=== PATIENT | male | born 1960 | race Caucasian/White ===

== ENCOUNTER → 2022-03-03 | Outpatient (CLI) | payer OTHER ==
[2022-03-03 14:46] LABS: INR 0.9 (<1.2); Prothrombin Time 9.7 sec (9.0-12.0)
[2022-03-03 18:28] LABS: HCT 38.1 % (39.6-50.0); HGB 12.1 g/dL (13.0-17.0); MCH 28.7 pg (27.0-32.0); MCHC 31.8 g/dL (32.0-37.0); MCV 90.3 fL (80.0-97.0); Mean Platelet Volume 10.2 fL (9.5-12.2); NRBC Per 100 WBC 0 /100 WBCS (0.0-0.0); Platelet Count 329 X 10*3/uL (140-440); RBC 4.22 X 10*6/uL (4.40-5.60); RDW 13.9 % (11.5-14.5); WBC 8.89 X 10*3/uL (4.50-10.00)
[2022-03-03 19:25] LABS: ALT 25 U/L (10-49); AST 25 U/L (14-35); African American GFR (CKD) 100.2 (60.0-200.0); Albumin 4.3 g/dL (3.8-4.9); Albumin/Globulin Ratio 2.02 (1.60-3.17); Alkaline Phosphatase 96 U/L (41-126); BUN/Creat Ratio 20.19 Ratio (12.00-20.00); Blood Urea Nitrogen 19.1 mg/dL (9.0-27.0); Calcium 9.5 mg/dL (8.7-10.3); Carbon Dioxide 23.6 mmol/L (20.0-27.5); Chloride 104 mmol/L (96-109); Globulin 2.1 g/dL (1.6-3.3); Glucose 108 mg/dL (70-110); Non-African American GFR(CKD) 86.5 (60.0-200.0); Potassium 4.5 mmol/L (3.5-5.5); Sodium 140 mmol/L (135-145); Total Bilirubin <0.15 mg/dL (0.30-1.20); Total Protein 6.4 g/dL (6.2-8.2)
[2022-03-03 21:29] LABS: Appearance,Urine Clear (Clear); Bilirubin,Urine Negative (Negative); Blood,Urine Negative (Negative); Color,Urine Yellow (Yellow); Ketones,Urine Trace mg/dL (Negative); Nitrite,Urine Negative (Negative); PH, Urine 5.5 (5.0-8.0); Specific Gravity,Urine 1.026 (1.001-1.030); Urobilinogen,Urine 0.2 (0.2,1.0)
== END | disposition home or self-care (01) ==
LOC: LABPAT 13:12
PROVIDERS: ATTEND Orthopaedic Surgery
DX: Z01.812 Encounter for preprocedural laboratory examination (principal)
CPT/HCPCS: 80053; 81003; 83036; 85027; 85610; 85730; 87070; 93005

== ENCOUNTER → 2022-03-03 | Outpatient (CLI) | payer OTHER ==
--- NOTE | 2022-03-03 16:16 | CT ---
EXAMINATION TYPE: CT left knee - [facility] Protocol DATE OF EXAM: 03/03/2022 COMPARISON: None HISTORY: 61-year-old male M2 5.562, left knee pain TECHNIQUE: Contiguous axial scanning of the left knee without IV contrast. Scanning through the pelvi s and ankles for surgical planning purposes. Coronal and sagittal reconstructions performed. CT DLP: 651 mGycm Automated exposure control for dose reduction was used. FINDINGS: There is mild degenerative change of the hips. Bilateral hamstrings origin tendinosis noted. Left knee: Generalized soft tissue swelling. Moderate to large joint effusion noted. Possible AVN involving the articular surface of both medial and lateral femoral condyles. Fracture li ne paralleling the subchondral bone plate of the weightbearing medial femoral condyle measuring 1.6 c m wide and 3.1 cm AP. Moderate to severe narrowing of medial compartment joint space. Underlying meni scal chondrocalcinosis. Ankles appear grossly intact. IMPRESSION: LEFT KNEE WITH A MODERATE TO LARGE JOINT EFFUSION. CORRELATE FOR EITHER AVN OF THE FEMORAL CONDYLES W ITH SUBCHONDRAL FRACTURE OF THE WEIGHTBEARING MEDIAL FEMORAL CONDYLE VERSUS INSUFFICIENCY OR IMPACTIO N FRACTURE WEIGHTBEARING ASPECT MEDIAL FEMORAL CONDYLE MEASURING 1.6 CM WIDE AND 3.1 CM AP. IMAGING F OR SURGICAL PLANNING PURPOSES.
== END | disposition home or self-care (01) ==
LOC: RADCTMAIN 12:33
PROVIDERS: ATTEND Orthopaedic Surgery
DX: M25.462 Effusion, left knee (principal); M25.562 Pain in left knee